=== PATIENT | female | born 1975 | race Caucasian/White ===

== ENCOUNTER 2023-01-09 14:24 | Emergency (ER) | payer MEDICAID ==
[2023-01-09 16:01] LABS: ESTIMATED GFR 78 mL/min (>60); TROPONIN I HIGH SENSITIVITY 4.9 pg/mL (<=60.3)
[2023-01-09 18:23] VITALS: BP 144/66; PULSE 89
== END 2023-01-09 18:26 | disposition home or self-care (01) ==
LOC: JP.ED 14:24
DX: J44.1 Chronic obstructive pulmonary disease with (acute) exacerbation (principal); Z88.8 Allergy status to other drugs, medicaments and biological substances; Z79.02 Long term (current) use of antithrombotics/antiplatelets; Z72.0 Tobacco use
CPT/HCPCS: 36415; 71250; 71250-26; 80053; 84484; 85025; 85379; 86140; 93005; 93010; 99283; 99285

== ENCOUNTER 2024-11-22 19:00 | Emergency (ER) | payer MEDICAID ==
[2024-11-22 19:46] LABS: APPEARANCE,URINE SLIGHTLY CLOUDY (CLEAR); BILIRUBIN,URINE NEGATIVE (NEGATIVE); COLOR,URINE YELLOW (YELLOW); GLUCOSE,URINE NEGATIVE (NEGATIVE); KETONES,URINE NEGATIVE (NEGATIVE); LEUKOCYTE ESTERASE,URINE NEGATIVE (NEGATIVE); NITRITE,URINE POSITIVE (NEGATIVE); OCCULT BLOOD,URINE TRACE-INTACT (NEGATIVE); PH,URINE 5.5 (5.0-8.0); PROTEIN,URINE 30 mg/dL (NEGATIVE)
[2024-11-22 19:52] LABS: BACTERIA,URINE MODERATE; EPITHELIAL CELLS,URINE FEW; MUCUS,URINE MANY; RBC,URINE 0-5 (0-5); WBC,URINE 20-30 (0-5)
[2024-11-22 19:53] LABS: AMORPHOUS SEDIMENT,URINE NOT SEEN
[2024-11-22 20:03] VITALS: BP 140/57; PULSE 104
== END 2024-11-22 20:13 | disposition home or self-care (01) ==
LOC: JP.ED 19:00
DX: N30.01 Acute cystitis with hematuria (principal); J44.9 Chronic obstructive pulmonary disease, unspecified; F17.210 Nicotine dependence, cigarettes, uncomplicated; Z79.899 Other long term (current) drug therapy; Z88.6 Allergy status to analgesic agent
CPT/HCPCS: 81001; 87086; 99284